=== PATIENT | male | born 1975 | race Caucasian/White ===

== ENCOUNTER 2019-01-09 01:25 | Emergency (ER) | payer OTHER ==
[2019-01-09 02:30] LABS: BASOPHILS % (AUTO) 0.2 % (0.0-5.0); EOSINOPHILS % (AUTO) 1.7 % (0.0-8.0); HEMATOCRIT 40.8 % (42-54); LYMPHOCYTES % (AUTO) 20.6 % (21.0-51.0); MEAN CORPUSCULAR HGB CONC 35.1 g/dL (32.0-36.0); MEAN CORPUSCULAR VOLUME 96.6 fL (79-99); MONOCYTES % (AUTO) 8.6 % (3.0-13.0); NEUTROPHILS % (AUTO) 68.9 % (40.0-77.0); PLATELET COUNT (AUTO) 271 K/uL (130-400); RED BLOOD CELL COUNT(AUTO) 4.22 MIL/uL (4.50-6.20); WHITE BLOOD COUNT (AUTO) 6.3 K/uL (4.8-10.8)
[2019-01-09] MEDS ORDERED: GUAIFENESIN-CODEINE 5 ML SYRUP ONE (02:39)
[2019-01-09] MEDS ORDERED: PREDNISONE 20 MG TABLET ONE (02:39)
[2019-01-09] MEDS ORDERED: PROMETHAZINE/CODEINE 6.25-10MG/5ML CUP ONE (02:41)
[2019-01-09 02:42] LABS: CREATININE 0.9 mg/dL (0.5-1.5); POTASSIUM 4.6 mmol/L (3.5-5.1)
[2019-01-09 02:46] LABS: ALBUMIN 3.9 g/dL (3.5-5.0); BILIRUBIN,TOTAL 0.3 mg/dL (0.2-1.0); TOTAL PROTEIN, SERUM 7.7 g/dL (6.0-8.3)
[2019-01-09] MEDS ORDERED: IPRATROPIUM/ALBUTEROL SULFATE 3 ML SOLUTION IH ONE (02:48)
== END 2019-01-09 03:28 | disposition home or self-care (01) ==
LOC: EDH 01:25
DX: J20.9 Acute bronchitis, unspecified (principal); Z72.0 Tobacco use; Z90.89 Acquired absence of other organs
CPT/HCPCS: 36415; 71046; 80053; 85025; 94640; 99285; Q0169